=== PATIENT | female | born 1950 | race Caucasian/White ===

== ENCOUNTER → 2016-11-22 | Outpatient (CLI) | payer OTHER | LOC: FIMAGING 08:42 | PROVIDERS: ATTEND Family Medicine | DX: Z12.31 Encounter for screening mammogram for malignant neoplasm of breast (principal); Z13.820 Encounter for screening for osteoporosis; Z78.0 Asymptomatic menopausal state | CPT/HCPCS: G0202 ==

== ENCOUNTER → 2018-09-16 | Outpatient (CLI) | payer OTHER | LOC: FIMAGING 10:07 | PROVIDERS: ATTEND Physician Assistant | DX: R91.8 Other nonspecific abnormal finding of lung field (principal); M51.34 Other intervertebral disc degeneration, thoracic region ==